=== PATIENT | female | born 1945 | race Caucasian/White ===

== ENCOUNTER → 2017-11-15 | Outpatient (CLI) | payer OTHER | LOC: M.RAD 13:30 | DX: M81.0 Age-related osteoporosis without current pathological fracture (principal); Z78.0 Asymptomatic menopausal state ==

== ENCOUNTER → 2018-07-19 | Outpatient (CLI) | payer OTHER ==
--- NOTE | 2018-07-19 13:54 | 2DMMODE ---
[place] [address] 2 D/M-MODE ECHOCARDIOGRAM Name: SONAL LEMUS Room: [facility]#: [id number] Admission: 07/19/18 Attend Phys: Adri Isbell MD Discharge: Date of : 47 Date of Service: 07/19/18 1354 Report #: [id number] THIS REPORT FOR: //name// APPROVED REPORT Study performed: 07/19/2018 10:54:03 EXAM: Comprehensive 2D, Doppler, and color-flow Echocardiogram Patient Location: Out-Patient BSA: 1.60 HR: 65 bpm BP: 122/70 mmHg Other Information Study Quality: Good Indications Murmur 2D Dimensions IVSd: 9.50 (7-11mm) LVOT Diam: 19.73 (18-24mm) LVDd: 43.06 mm PWd: 9.39 (7-11mm) Ascending Ao: 28.74 (22-36mm) LVDs: 23.16 (25-40mm) Aortic Root: 26.05 mm Volumes Left Atrial Volume (Systole) LA ESV Index: 14.60 mL/m2 Aortic Valve AoV Peak Alexi.: 1.71 m/s AO Peak Gr.: 11.71 mmHg LVOT Max P.75 mmHg AO Mean Gr.: 6.94 mmHg LVOT Mean P.99 mmHg LVOT Max V: 1.09 m/s AO V2 VTI: 39.91 cm LVOT Mean V: 0.63 m/s NESTOR (VTI): 1.92 cm2 LVOT V1 VTI: 25.00 cm AI [place]: 2.69 m/s2 AI PHT: 428.91 ms Mitral Valve E/A Ratio: 0.89 MV Decel. Time: 248.63 ms MV E Max Alexi.: 0.68 m/[place] [address] 2 D/M-MODE ECHOCARDIOGRAM Name: SONAL LEMUS Room: [facility]#: [id number] Admission: 07/19/18 Attend Phys: Adri Isbell MD Discharge: Date of : 47 Date of Service: 07/19/18 1354 Report #: [id number] MV PHT: 72.10 ms MVA (PHT): 3.05 cm2 TDI E/Lateral E': 6.80 E/Medial E': 6.80 Medial E' Alexi.: 0.10 m/s Lateral E' Alexi.: 0.10 m/s Pulmonary Valve PV Peak Alexi.: 0.96 m/s PV Peak Gr.: 3.71 mmHg Tricuspid Valve RAP Estimate: 5.00 mmHg TR Peak Gr.: 17.47 mmHg RVSP: 22.47 mmHg PA Pressure: 22.47 mmHg Left Ventricle The left ventricle is normal size. There is normal LV segmental wall motion. There is normal left ventricular wall thickness. Left ventricular systolic function is normal. The left ventricular ejection fraction is within the normal range. LVEF is 55-60%. Grade I - abnormal relaxation pattern. Right Ventricle The right ventricle is normal size. The right ventricular systolic function is normal. Atria The left atrium size is normal. The right atrium size is normal. Aortic Valve Mild aortic valve sclerosis. Mild to moderate aortic regurgitation. There is no aortic valvular stenosis. Mitral Valve The mitral valve is normal in structure. Mild mitral regurgitation. No evidence of mitral valve stenosis. Tricuspid Valve The tricuspid valve is normal in structure. Mild tricuspid regurgitation. Pulmonic Valve The pulmonary valve is normal in structure. Trace pulmonic [place] [address] 2 D/M-MODE ECHOCARDIOGRAM Name: SONAL LEMUS Room: [facility]#: [id number] Admission: 07/19/18 Attend Phys: Adri Isbell MD Discharge: Date of : 47 Date of Service: 07/19/18 1354 Report #: [id number] Great Vessels The aortic root is normal in size. IVC is normal in size and collapses >50% with inspiration. Pericardium There is no pericardial effusion. <Conclusion> The left ventricle is normal size. There is normal left ventricular wall thickness. Left ventricular systolic function is normal. The left ventricular ejection fraction is within the normal range. LVEF is 55-60%. Grade I - abnormal relaxation pattern. The right ventricle is normal size. The left atrium size is normal. Mild aortic valve sclerosis. Mild to moderate aortic regurgitation. There is no aortic valvular stenosis. The mitral valve is normal in structure. Mild mitral regurgitation. The tricuspid valve is normal in structure. Mild tricuspid regurgitation. IVC is normal in size and collapses >50% with inspiration. There is no pericardial effusion. There is normal LV segmental wall motion. <ELECTRONICALLY SIGNED> By: Jewel Love MD, FACC 07/19/18 1354 1354 1354 Jewel Love MD, FACC /INF
== END ==
LOC: M.CRD 10:42
DX: Z12.31 Encounter for screening mammogram for malignant neoplasm of breast (principal); I08.3 Combined rheumatic disorders of mitral, aortic and tricuspid valves

== ENCOUNTER → 2020-07-09 | Outpatient (CLI) | payer OTHER ==
--- NOTE | 2020-07-09 10:46 | 2DMMODE ---
[place] [address] 2 D/M-MODE ECHOCARDIOGRAM Name: SONAL LEMUS Room: [facility]#: [id number] Admission: 07/09/20 Attend Phys: Adri Isbell MD Discharge: Date of : 47 Date of Service: 07/09/20 1045 Report #: [id number] THIS REPORT FOR: cc: Adri Isbell MD, Katrina MD Biggs, F. Douglas MD [facility] ~ APPROVED REPORT Study performed: 07/09/2020 08:49:06 EXAM: Comprehensive 2D, Doppler, and color-flow Echocardiogram Patient Location: Out-Patient BSA: 1.65 HR: 68 bpm BP: 122/70 mmHg Other Information Study Quality: Good Indications Mitral regurg. and Aortic Insuff. 2D Dimensions IVSd: 8.96 (7-11mm) LVOT Diam: 20.25 (18-24mm) LVDd: 43.00 mm PWd: 8.37 (7-11mm) Ascending Ao: 29.91 (22-36mm) LVDs: 29.95 (25-40mm) Aortic Root: 26.71 mm Volumes Left Atrial Volume (Systole) LA ESV Index: 19.40 mL/m2 Aortic Valve AoV Peak Alexi.: 1.98 m/s AO Peak Gr.: 15.68 mmHg LVOT Max P.47 mmHg AO Mean Gr.: 8.45 mmHg LVOT Mean P.36 mmHg LVOT Max V: 0.79 m/s AO V2 VTI: 47.21 cm LVOT Mean V: 0.54 m/s NESTOR (VTI): 1.47 cm2 LVOT V1 VTI: 21.54 cm AI [place]: 3.15 m/s2 AI PHT: 409.21 [place] [address] 2 D/M-MODE ECHOCARDIOGRAM Name: SONAL LEMUS Room: [facility]#: [id number] Admission: 07/09/20 Attend Phys: Adri Isbell MD Discharge: Date of : 47 Date of Service: 07/09/20 1045 Report #: [id number] Mitral Valve E/A Ratio: 0.81 MV Decel. Time: 292.14 ms MV E Max Alexi.: 0.56 m/s MV PHT: 84.72 ms MVA (PHT): 2.60 cm2 TDI E/Lateral E': 8.00 E/Medial E': 8.00 Medial E' Alexi.: 0.07 m/s Lateral E' Alexi.: 0.07 m/s Pulmonary Valve PV Peak Alexi.: 0.79 m/s PV Peak Gr.: 2.51 mmHg Tricuspid Valve RAP Estimate: 5.00 mmHg TR Peak Gr.: 20.90 mmHg RVSP: 25.90 mmHg PA Pressure: 25.90 mmHg Left Ventricle The left ventricle is normal size. There is normal LV segmental wall motion. There is normal left ventricular wall thickness. Left ventricular systolic function is normal. The left ventricular ejection fraction is within the normal range. LVEF is 55-60%. Grade I - abnormal relaxation pattern. Right Ventricle The right ventricle is normal size. The right ventricular systolic function is normal. Atria The left atrium size is normal. The right atrium size is normal. Aortic Valve Mild aortic valve sclerosis. Mild to moderate aortic regurgitation. There is no aortic valvular stenosis. Mitral Valve The mitral valve is normal in structure. Mild mitral regurgitation. No evidence of mitral valve stenosis. Tricuspid Valve The tricuspid valve is normal in structure. Mild [place] [address] 2 D/M-MODE ECHOCARDIOGRAM Name: SONAL LEMUS Room: [facility]#: [id number] Admission: 07/09/20 Attend Phys: Adri Isbell MD Discharge: Date of : 47 Date of Service: 07/09/20 1045 Report #: [id number] Pulmonic Valve The pulmonary valve is normal in structure. There is no pulmonic valvular regurgitation. Great Vessels The aortic root is normal in size. IVC is normal in size and collapses >50% with inspiration. Pericardium There is no pericardial effusion. <Conclusion> LVEF is 55-60%. Grade I - abnormal relaxation pattern. The left ventricle is normal size. There is normal left ventricular wall thickness. There is normal LV segmental wall motion. Left ventricular systolic function is normal. The left ventricular ejection fraction is within the normal range. Mild aortic valve sclerosis. Mild to moderate aortic regurgitation. There is no aortic valvular stenosis. Mild mitral regurgitation. Mild tricuspid regurgitation. <ELECTRONICALLY SIGNED> By: Christophe Gil MD, FACC 07/09/20 1045 1045 1045 Christophe Gil MD, FACC /INF
== END ==
LOC: M.CRD 08:57
PROVIDERS: ATTEND Family Medicine
DX: I08.3 Combined rheumatic disorders of mitral, aortic and tricuspid valves (principal); M81.0 Age-related osteoporosis without current pathological fracture